=== PATIENT | female | born 2005 ===

== ENCOUNTER 2023-12-15 14:35 | Outpatient (CLI) | payer SELFPAY ==
[~2023-12-15] VITALS: Wt 93.2 kg
[~2023-12-15 14:35] MED LIST: CEPHALEXIN500 M1 PO; PHENERGAN 25 TA25 MG PO
[2023-12-15] MEDS ORDERED: PRENATAL TABLET PO (15:00)
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
[2023-12-15] MEDS ORDERED: LR 1,000 ML IV PRN ×2 (15:15)
[2023-12-15 15:30] VITALS: BP 129/73; PULSE 86; TEMP 98.7
[2023-12-15] MEDS ORDERED: Acetaminophen 500 MG TAB PO ONE (15:45)
[2023-12-15 17:30] VITALS: BP 117/68; PULSE 76
== END 2023-12-15 17:35 | disposition home or self-care (01) ==
LOC: COL.ER 14:35 → LDRO 14:35 → EDSTATUS 14:56 → LDRO 17:35
DX: O9A.213 Injury, poisoning and certain other consequences of external causes complicating pregnancy, third trimester (principal); V89.2XXA Person injured in unspecified motor-vehicle accident, traffic, initial encounter; Z3A.37 37 weeks gestation of pregnancy